=== PATIENT | female | born 1995 | race African-American/Black ===

== ENCOUNTER 2018-07-24 19:26 | Emergency (ER) | payer OTHER, SELFPAY ==
[2018-07-24 19:53] LABS: Bilirubin Negative (Negative); Blood, Urine Negative (Negative); Clarity CLEAR (Clear); Glucose, Urine (Dipstick) Negative (Negative); Leukocyte Negative (Negative); Nitrite Negative (Negative); Protein, Urine (Dipstick) Trace mg/dL (Neg-Trace); Specific Gravity, Urine 1.036 (1.002-1.036); Urobilinogen 0.2 mg/dL (0.2-1.0)
[2018-07-24 19:56] LABS: Pregnancy Test - Urine (BHCG) POSITIVE (Negative); Pregu Control Background? CLEAR/WHITE (CLR/WHITE); Pregu Control Bar Appear? YES (CONTROL BAR); Specific Gravity 1.036 (1.002-1.036)
[2018-07-24] MEDS ORDERED: Ondansetron ODT 8 MG TAB ONE (20:00)
== END 2018-07-24 21:12 | disposition home or self-care (01) ==
LOC: ERS 19:26
DX: O21.9 Vomiting of pregnancy, unspecified (principal); R19.7 Diarrhea, unspecified; Z3A.00 Weeks of gestation of pregnancy not specified
CPT/HCPCS: 81003; 81025